=== PATIENT | male | born 1955 | race Caucasian/White ===

== ENCOUNTER 2022-02-20 20:35 | Emergency (ER) | payer BC, MEDICARE ==
[~2022-02-20] VITALS: Ht 193 cm; Wt 110.5 kg
[2022-02-20 20:55] LABS: BASOPHILS % (AUTO) 0.2 % (0-1); EOSINOPHILS % (AUTO) 0.3 % (0-6); HEMATOCRIT 41.5 % (42.0-52.0); HEMOGLOBIN 13.8 g/dl (14.0-17.9); LYMPHOCYTES # (AUTO) 0.7 X10'3 (1.1-4.8); LYMPHOCYTES % (AUTO) 7.8 % (21-51); MEAN CORPUSCULAR HEMOGLOBIN 32.2 PG (27.0-31.0); MEAN CORPUSCULAR HGB CONC 33.3 g/dL (33.0-36.5); MEAN CORPUSCULAR VOLUME 96.8 FL (78-98); MEAN PLATELET VOLUME 6.9 FL (7.4-10.4); MONOCYTES # (AUTO) 0.7 X10'3 (0-0.9); MONOCYTES % (AUTO) 7.8 % (2-12); NEUTROPHILS # (AUTO) 7.9 X10'3 (1.8-7.7); NEUTROPHILS % (AUTO) 83.9 % (42-75); PLATELET COUNT 269 X10'3 (140-440); RED BLOOD COUNT 4.29 X10'6 (4.70-6.10); RED CELL DISTRIBUTION WIDTH 13.3 % (11.5-14.5); WHITE BLOOD COUNT 9.4 X10'3 (4.5-11.0)
[2022-02-20 21:20] LABS: ALANINE AMINOTRANSFERASE 35 U/L (12-78); ALBUMIN 3.6 G/DL (3.4-5.0); ALBUMIN/GLOBULIN RATIO 0.9 (1.1-1.5); ALKALINE PHOSPHATASE 87 IU/L (46-116); ANION GAP 6 (8-16); ASPARTATE AMINO TRANSFERASE 20 U/L (10-37); BILIRUBIN,TOTAL 0.8 MG/DL (0.1-1.0); BLOOD UREA NITROGEN 16 MG/DL (7-18); CALCIUM 8.5 MG/DL (8.5-10.1); CHLORIDE 102 MMOL/L (99-107); CREATININE 0.84 MG/DL (0.60-1.10); GLUCOSE 123 MG/DL (70-104); MAGNESIUM 2.5 MG/DL (1.5-2.4); POTASSIUM 4.6 MMOL/L (3.5-5.1); SODIUM 136 MMOL/L (135-145); TOTAL CARBON DIOXIDE 27.6 MMOL/L (24-32); TOTAL PROTEIN 7.4 G/DL (6.4-8.2); eGFR > 90 ML/MIN
[2022-02-20] MEDS ORDERED: normal saline 1000ML IV soln IVB ONE (23:30)
[2022-02-20] MEDS ORDERED: metoclopramide 5 mg/ml inj IV ONE (23:30)
[2022-02-20] MEDS ORDERED: iohexol 350MG/ML 100ml bottle IV ONE (23:32)
[2022-02-20 23:48] LABS: C-REACTIVE PROTEIN 10.79 MG/DL (0.0-0.5)
[2022-02-21 01:30] VITALS: BP 170/94
[2022-02-21] MEDS ORDERED: morphine 4 MG/ML inj SYRINge IV ONE (01:45)
== END 2022-02-21 02:38 | disposition home or self-care (01) ==
LOC: ER 20:35
DX: R06.02 Shortness of breath (principal); U09.9 Post COVID-19 condition, unspecified; Z88.8 Allergy status to other drugs, medicaments and biological substances
CPT/HCPCS: 36415; 71046; 71275; 80053; 83605; 83735; 83880; 84145; 84484; 85025; 86140; 87040; 96361; 96374; 96375; 99285; J2270; J2765; J7030; Q9967